=== PATIENT | female | born 1965 | race Caucasian/White ===

== ENCOUNTER → 2017-03-22 | Outpatient (CLI) | payer BC ==
[2017-03-26 19:48] LABS: Large VLDL Particle Number,NMR 1.9 nmol/L (<=2.7)
== END | disposition home or self-care (01) ==
LOC: LABWHC1 07:47
PROVIDERS: ATTEND Internal Medicine Cardiovascular Disease
DX: E78.5 Hyperlipidemia, unspecified (principal)
CPT/HCPCS: 36415; 83704; 84439; 84443

== ENCOUNTER → 2019-06-29 | Outpatient (CLI) | payer BC ==
[2019-06-29 08:59] LABS: HCT 42.5 % (34.0-46.0); HGB 14.1 gm/dL (11.4-16.0); MCH 29.4 pg (25.0-35.0); MCHC 33.2 g/dL (31.0-37.0); MCV 88.6 fL (80.0-100.0); Platelet Count 320 k/uL (150-450); RDW 12.3 % (11.5-15.5); WBC 5.3 k/uL (3.8-10.6)
[2019-06-29 16:53] LABS: African American GFR (CKD) 96.9 (60.0-200.0); Albumin 4.4 g/dL (3.80-4.90); Albumin/Globulin Ratio 2.32 (1.60-3.17); BUN/Creat Ratio 21.25 Ratio (12.00-20.00); Calcium 8.9 mg/dL (8.7-10.3); Chol/HDL Ratio 2.92; Globulin 1.9 g/dL (1.6-3.3); LDL Cholesterol,Calculated 106.8 mg/dL (0.0-131.0); Non-African American GFR(CKD) 83.6 (60.0-200.0); Potassium 4.3 mmol/L (3.5-5.5); Total Bilirubin 0.5 mg/dL (0.3-1.2); Total Protein 6.3 g/dL (6.2-8.2); VLDL Calculation 14.2 mg/dL (5.00-40.00)
== END | disposition home or self-care (01) ==
LOC: LABWHC1 08:28
PROVIDERS: ATTEND Nurse Practitioner Adult Health
DX: E78.5 Hyperlipidemia, unspecified (principal); I10 Essential (primary) hypertension; R00.0 Tachycardia, unspecified
CPT/HCPCS: 36415; 80053; 80061; 83735; 84443; 84481; 85027